=== PATIENT | male | born 1995 | race Caucasian/White ===

== ENCOUNTER 2018-06-14 21:32 | Emergency (ER) | payer BC, OTHER ==
[~2018-06-14 21:32] MED LIST: ALB6.7R INH; FLUT10SP NS; LOR5 PO; LOR5/325 PO
--- NOTE | 2018-06-14 22:50 | ER Report ---
History and Physical Time Seen By MD: 22:50 HPI/ROS CHIEF COMPLAINT: I think I have cellulitis of my legs HISTORY OF PRESENT ILLNESS: 23-year-old morbidly obese male presents ambulatory to the ER complaining of fever and chills. Patient's noted some erythema on his right lower extremity. There are some scratches on his right medial calf. He also has a severe case of athlete's foot bilaterally. He also notes some tightness in his left calf with flexion of his leg. He notes no swelling of his lower extremities. He has no difficulty breathing or chest pain. Allergies: Coded Allergies: cephalexin (Verified Allergy, Severe, 06/14/18) peanut (Verified Allergy, Mild, RASH, 03/24/08) Home Meds Active Scripts Sulfamethoxazole/Trimet 800-160 Mg Tab (BACTRIM DS TABLET) 1 Each Tablet, 1 TAB PO Q12H for infection, #14 Prov:KELSIE MULLER DO 06/14/18 Reported Medications Acetaminophen/Hydrocodone (Lortab 5/325 Mg) 5 Mg/325 Mg Tab, 1 TAB PO Q6H PRN, #10 0 Refills 04/02/10 Albuterol Sulfate (Proventil Hfa) 6.7 Gm Aer.w.adap, 1 PUFF INH PRN, 0 Refills 04/02/10 Reviewed Nurses Notes: Yes Old Medical Records Reviewed: Yes Constitutional Vital Sign - Last 24 Hours 06/14/18 06/14/18 22:51 23:15 Temp 99.6 Pulse 101 98 Resp 24 22 B/P (MAP) 186/98 Pulse Ox 84 91 O2 Delivery Room Air Room Air Physical Exam General Appearance: The patient is alert, has no immediate need for airway protection and no current signs of toxicity. Vital signs stable, fever 99.6 Eyes: Pupils equal and round no injection. Respiratory: Chest is non tender, lungs are clear to auscultation. Cardiac: regular rate and rhythm Gastrointestinal: Abdomen is soft and non tender, no masses, bowel sounds normal. Musculoskeletal: Neck: Neck is supple and non tender. Extremities have full range of motion and are non tender. There is erythema and warmth to the skin on the right medial calf area just above the ankle, the left leg appears normal. Both legs are neurovascularly intact. Skin: No rashes or lesions. DIFFERENTIAL DIAGNOSIS: After history and physical exam differential diagnosis was considered for adult fever including but not limited to viral syndromes incl uding influenza, urinary tract infection, cellulitis, pneumonia and sepsis. Medical Decision Making ED Course/Re-evaluation ED Course Patient was admitted to an examination room. H&P was done. The differential diagnosis was considered. On clinical examination. Patient has some warmth and erythema to his bilateral lower extremities, right greater than left. He'll be covered with Bactrim DS for 7 days twice a day. He had a previous reaction to Keflex. Adjacent advised to follow-up with his primary care if unimproved in 2- 3 days. She states his primary care physician is already [facility]. Decision to Disposition Date: Jun 14, 2018 Decision to Disposition Time: 23:11 Depart Departure Latest Vital Signs Vital Signs Date Time Temp Pulse Resp B/P (MAP) Pulse Ox O2 Delivery O2 Flow Rate FiO2 06/14/18 23:15 98 22 91 Room Air 06/14/18 22:51 99.6 186/98 Impression: Primary Impression: Cellulitis of left leg Additional Impressions: Cellulitis of right leg Low grade fever Condition: Improved Disposition: HOME OR SELF-CARE Referrals: MARAL SEGAL MD (PCP) New Scripts Sulfamethoxazole/Trimet 800-160 Mg Tab (BACTRIM DS TABLET) 1 Each Tablet 1 TAB PO Q12H for infection, #14 Prov: KELSIE MULLER DO 06/14/18 Patient Instructions: Cellulitis (ED) Additional Instructions: Follow-up with primary care if unimproved in 2-5 days Problem Qualifiers KELSIE MULLER DO Jun 14, 2018 22:50
[2018-06-14 22:51] VITALS: BP 186/98
[2018-06-14] MEDS ORDERED: SULF-198 PO (23:12)
[2018-06-14] MEDS ORDERED: TRIMETH/SULFA DS 160-800MG TAB PO ONE (23:15)
== END 2018-06-14 23:39 | disposition home or self-care (01) ==
LOC: ER 22:56
DX: L03.116 Cellulitis of left lower limb (principal); L03.115 Cellulitis of right lower limb; R50.9 Fever, unspecified
CPT/HCPCS: 99283